=== PATIENT | female | born 1985 | race Caucasian/White ===

== ENCOUNTER 2025-04-25 13:37 | Emergency (ER) | payer MEDICAID | END 2025-04-25 15:00 | disposition home or self-care (01) | LOC: FB.ED 13:37 | DX: H16.002 Unspecified corneal ulcer, left eye (principal); F17.210 Nicotine dependence, cigarettes, uncomplicated; Z79.899 Other long term (current) drug therapy; Z88.0 Allergy status to penicillin; Z88.8 Allergy status to other drugs, medicaments and biological substances | CPT/HCPCS: 99283 ==